=== PATIENT | female | born 1995 ===

== ENCOUNTER → 2018-03-31 | Outpatient (CLI) | payer OTHER ==
[~2018-03-31] MED LIST: ATOM40CA7 PO; BUPR-124 PO; DOXY-181 PO; FLU60VIA41 IM; FLUO-177 PO; FLUT1AER INH; LEVA15HF IH; LEVO-85 PO; LEVO5TAB28 PO; MONT10TA PO; PNEI IM; TOPI-23 PO; VERA180C8 PO; ZOLM2.5T PO
[2018-03-31 10:03] LABS: PLATELET COUNT, AUTOMATED 293 K/uL (150-450)
== END ==
LOC: LAB 09:40
PROVIDERS: ATTEND Nurse Practitioner Family
DX: R53.83 Other fatigue (principal)
CPT/HCPCS: 36415; 82040; 82247; 82306; 82310; 82374; 82435; 82565; 82607; 82728; 82746; 82947; 83540; 83550; 84075; 84132; 84155; 84295; 84443; 84450; 84460; 84520; 85025

== ENCOUNTER → 2018-05-12 | Outpatient (CLI) | payer OTHER ==
[~2018-05-12] MED LIST changes: +ATOM80CA3 PO; +CEFP200T18 PO; +PRED20TA6 PO
[2018-05-12 14:44] LABS: PLATELET COUNT, AUTOMATED 264 K/uL (150-450)
== END ==
LOC: LAB 14:28
PROVIDERS: ATTEND Nurse Practitioner Primary Care
DX: J32.9 Chronic sinusitis, unspecified (principal); R53.83 Other fatigue
CPT/HCPCS: 36415; 82040; 82247; 82310; 82374; 82435; 82565; 82947; 84075; 84132; 84155; 84295; 84443; 84450; 84460; 84520; 85025; 85651; 86140

== ENCOUNTER → 2018-05-17 | Outpatient (REF) | payer OTHER ==
[~2018-05-17] MED LIST changes: +AZEL137S NS; +FLUT9.9S IH; +PANT40TA65 PO
== END ==
LOC: LAB 14:52
PROVIDERS: ATTEND Nurse Practitioner Primary Care
DX: R19.8 Other specified symptoms and signs involving the digestive system and abdomen (principal)
CPT/HCPCS: 87338

== ENCOUNTER → 2018-07-07 | Outpatient (CLI) | payer OTHER ==
[~2018-07-07] MED LIST changes: +FERR-53 PO; +RANI-366 PO
== END ==
LOC: LAB 16:37
PROVIDERS: ATTEND Nurse Practitioner Family
DX: Z02.9 Encounter for administrative examinations, unspecified (principal)

== ENCOUNTER → 2018-07-07 | Outpatient (CLI) | payer OTHER | LOC: LAB 16:40 | PROVIDERS: ATTEND Nurse Practitioner Family | DX: G25.81 Restless legs syndrome (principal); R19.7 Diarrhea, unspecified; R10.11 Right upper quadrant pain; K21.9 Gastro-esophageal reflux disease without esophagitis | CPT/HCPCS: 36415; 82150; 82728; 82784; 83540; 83550; 83690 ==